=== PATIENT | female | born 1960 | race Asian ===

== ENCOUNTER 2021-11-26 19:38 | Emergency (ER) | payer OTHER ==
[~2021-11-26] VITALS: Ht 167.6 cm; Wt 90.7 kg
[~2021-11-26 19:38] MED LIST: ADLT ASA LOW81 MG PO; AMLODIPINE BESYLATE PO; BENZ1TAB43 PO; CARV12.5 PO; CYAN10009 IM; DIVA500T2 PO; DOCU100C10 PO; ESOMEPRAZOLE PO; FURO40TA93 PO; GABA300C2 PO; GEODON60 MG PO; INSUINJ20 SC; LEXAPRO10 MG PO; LISI20TA11 PO; METF100038 PO; METO5TAB38 PO; MULTIVITAMI2 PO; OXYBUTYNIN10 MG PO; POTASSIUM CHLO20 ME1 PO; SIMV20TA2 PO; XALATAN0.005 % PO; [UNRECOGNIZED DRUG - OTHER] PO; [UNRECOGNIZED DRUG - OTHER] TOP
[2021-11-27] MEDS ORDERED: BENZTROPINE2 MG PO (01:53)
[2021-11-27] MEDS ORDERED: [UNRECOGNIZED DRUG - OTHER] EX (01:55)
[2021-11-27] MEDS ORDERED: CARV3.12 PO (01:56)
[2021-11-27] MEDS ORDERED: DIVA500T2 PO ×2 (01:57→02:38)
[2021-11-27] MEDS ORDERED: TYLENOL325 MG PO ×3 (02:04→02:15)
[2021-11-27] MEDS ORDERED: APRODINE1 TAB PO (02:07)
[2021-11-27] MEDS ORDERED: FLEET ENEMA RE (02:12)
[2021-11-27] MEDS ORDERED: MILK OF MA400 MG/5 M PO (02:14)
[2021-11-27] MEDS ORDERED: EQL FLUTIC50 MCG/ACT NAS (02:16)
[2021-11-27] MEDS ORDERED: LOSA50TA PO (02:18)
[2021-11-27] MEDS ORDERED: MAGNESIUM OXID400 M3 PO (02:18)
[2021-11-27] MEDS ORDERED: SPIRONOLACT50 MG PO (02:19)
[2021-11-27] MEDS ORDERED: MIRALAX17 GM PO (02:20)
[2021-11-27] MEDS ORDERED: VITAMIN D50000 UNIT PO (02:21)
[2021-11-27] MEDS ORDERED: CORRECTOL5 MG PO (02:45)
[2021-11-27] MEDS ORDERED: ANTI-DIARR1 MG/7.5 M PO (02:47)
[2021-11-27] MEDS ORDERED: DOCUSATE SODIUM1 TA1 PO (04:43)
[2021-11-27] MEDS ORDERED: FIBER LAXATV625 MG PO (04:44)
[2021-11-27] MEDS ORDERED: ANTACID PO (04:46)
[2021-11-27] MEDS ORDERED: GUAIFENESIN DM PO (04:48)
== END 2021-11-26 23:15 | disposition still patient (30) ==
LOC: ED 19:38
DX: F25.8 Other schizoaffective disorders (principal); F22 Delusional disorders; R45.1 Restlessness and agitation; Z11.52 Encounter for screening for COVID-19; Z04.6 Encounter for general psychiatric examination, requested by authority
CPT/HCPCS: 87635; 96372; 99283; J1200; J3486; U0003

== ENCOUNTER → 2022-06-25 | Emergency (ER) | payer OTHER ==
[~2022-06-25] VITALS: Ht 165.1 cm; Wt 105.7 kg
[~2022-06-25] MED LIST changes: +ACET-206 PO; +ACETAMINOPHEN650 M1 PO; -ADLT ASA LOW81 MG PO; +ALUMSUS6 PO; +ANTACID PO; +ANTI-DIARR1 MG/7.5 M PO; +APRODINE1 TAB PO; +ASPIRIN 8181 MG PO; +BENZTROPINE2 MG PO; +CARV3.12 PO; +CLARITIN10 M1 PO; +CORRECTOL5 MG PO; +DITROPAN XL10 MG PO; +DIVALPROEX500 MG PO; +DOCUSATE SODIUM1 TA1 PO; +DQZATE100 MG PO; +DULO30CA PO; +ENTERIC COATED325 MG PO; +EQL FLUTIC50 MCG/ACT NAS; +EUCERIN EX; +FIBER LAXATV625 MG PO; +FLEET ENEMA RE; +FLONASE AL50 MCG/ACT NAS; +GUAIFENESIN DM PO; +LATA0.00 OPTH; +LOSA50TA PO; +MAGN400T4 PO; +MAGNESIUM OXID400 M1 PO; +MAGNESIUM OXID400 M3 PO; +MELATONIN3 M1 PO; +MEMA5TAB PO; +METF500T PO; +METO2.5T3 PO; +MILK OF MA400 MG/5 M PO; +MILK OF MAGNESI1 SU1 PO; +MIRALAX 17GM PAK PO; +MIRALAX17 GM PO; +OXCARBAZEPIN150 MG PO; +POTA10CA3 PO; +POTASSIUM CHLO20 ME2 PO; +PROAIR HFA108 MCG/AC INH; +QUET25TA2 PO; +RISP1TAB PO; +SPIR50TA8 PO; +SPIRONOLACT25 MG PO; +SPIRONOLACT50 MG PO; +TRAZ50TA36 PO; +TYLENOL325 MG PO; +VITAMIN B-12500 MCG PO; +VITAMIN D325 MCG PO; +VITAMIN D50000 UNIT PO; +[UNRECOGNIZED DRUG - OTHER] EX; +[UNRECOGNIZED DRUG - OTHER] EX; +[UNRECOGNIZED DRUG - OTHER] PO
[2022-06-25 22:30] VITALS: BP 130/75; TEMP 98.3
[2022-06-25 23:17] LABS: POTASSIUM 2.7 mmol/L (3.6-5.2)
[2022-06-25 23:21] LABS: PLATELET COUNT 335 K/uL (152-353)
== END ==
LOC: ED 22:30
PROVIDERS: Family Medicine
DX: R46.89 Other symptoms and signs involving appearance and behavior (principal); R44.2 Other hallucinations; Z11.52 Encounter for screening for COVID-19; Z04.6 Encounter for general psychiatric examination, requested by authority
CPT/HCPCS: 36415; 80053; 81002; 85027; 87635; 93005; 99283; U0003